=== PATIENT | male | born 1980 | race Caucasian/White ===

== ENCOUNTER 2017-02-08 21:53 | Emergency (ER) | payer SELFPAY ==
[~2017-02-08] VITALS: Ht 177.8 cm; Wt 75.0 kg
[~2017-02-08 21:53] MED LIST: ZOFR4TAB3 SL
[2017-02-08 21:54] VITALS: BP 134/86; PULSE 78; RESP 16; TEMP 98.9; O2SAT 99
[2017-02-08] MEDS ORDERED: AMOX500T PO (23:38)
[2017-02-08] MEDS ORDERED: DICL75TA PO (23:38)
--- NOTE | 2017-02-08 23:41 | PD ---
HPI Chief Complaint: Oral / Dental Pain or Problem Time Seen by Provider: 23:39 Travel History International Travel<30 days: No Contact w/Intl Traveler<30days: No Traveled to known affect area: No History of Present Illness HPI 37-year-old white male presents emergent department with complaints of dental pain 2 days. Symptoms are mild to moderate. Worse with chewing. No alleviating factors. No fever chills. PFSH Past Medical History Medical History: Denies Significant Hx Hx Anticoagulant Therapy: No Cardiovascular Problems: No Chemotherapy: No Cerebrovascular Accident: No Diabetes: No Respiratory: No Immunizations Current: Yes Tetanus Vaccination: < 5 Years Past Surgical History Surgical History: No Previous Surgery Social History Alcohol Use: Yes Tobacco Use: Yes Substance Use: No Allergies-Medications (Allergen,Severity, Reaction): Coded Allergies: No Known Allergies (Unverified , 06/22/15) Reported Meds & Prescriptions Reported Meds & Active Scripts Active Diclofenac Sodium DR (Diclofenac Sodium) 75 Mg Tabdr 75 Mg PO BID Amoxicillin 500 Mg Tab 1,000 Mg PO BID Zofran ODT (Ondansetron HCl) 4 Mg Tab 4 Mg SL Q6H PRN FOR NAUSEA/VOMITING Review of Systems Except as stated in HPI: all other systems reviewed are Neg Physical Exam Narrative GENERAL: Well-developed, well-nourished in no acute distress. Nontoxic appearing. HEAD: Normocephalic, atraumatic. EYES: Pupils equal round and reactive. Extraocular motions intact. No scleral icterus. No injection or drainage. ENT: TMs clear without erythema. The external auditory canals clear. Nose: clear . Posterior pharynx is pink and moist. No tonsillar edema or exudate. Uvula midline. Airway patent. The patient has diffuse periodontal disease. He has a large dental carry in his left lower mandible in the area of his first premolar. There is gingival erythema and edema. Patient has large lower volodymyr. The remainder floor the mouth is unremarkable. NECK: Trachea midline.Supple, nontender, moves head freely. No central bony tenderness or spasm. CARDIOVASCULAR: Regular rate and rhythm without murmurs, gallops, or rubs. RESPIRATORY: Clear to auscultation. Breath sounds equal bilaterally. No wheezes , rales, or rhonchi. GASTROINTESTINAL: Abdomen soft, non-tender, nondistended. No hepato-splenomegaly , or palpable masses. No guarding. EXTREMITIES: No clubbing, cyanosis, or edema. No joint tenderness, effusion, or edema noted. BACK: Nontender without deformity or crepitance. No flank tenderness. Data Data Last Documented VS Vital Signs Date Time Temp Pulse Resp B/P Pulse Ox O2 Delivery O2 Flow Rate FiO2 02/08/17 21:54 98.9 78 16 134/86 99 Room Air Orders Amoxicillin (Trimox) (02/08/17 23:45) Acetamin-Hydrocod 325-5 Mg ([place] 5-325 (02/08/17 23:45) MDM Medical Decision Making Medical Screen Exam Complete: Yes Emergency Medical Condition: Yes Medical Record Reviewed: Yes Differential Diagnosis MDM: Moderate Differential diagnoses: Dental abscess, dental caries, osteitis, cellulitis Narrative Course This is dental caries, dentalgia Patient given Amoxil 1 g and Lortab 5 mg by mouth Diagnosis Primary Impression: Dental caries Additional Impression: Dentalgia Patient Instructions: Narcotic given in the ED, General Instructions Med/Other Pt SpecificInfo: Prescription(s) given Scripts Diclofenac Sodium DR 75 Mg Tabdr75 Mg PO BID #20 TAB Prov:Citlaly Landrum DO 02/08/17 Amoxicillin 500 Mg Tab1,000 Mg PO BID #40 TAB Prov:Citlaly Landrum DO 02/08/17 Disposition: 01 DISCHARGE HOME Condition: Stable Santiago Lawrence Feb 08, 2017 23:41
[2017-02-08] MEDS ORDERED: AMOXICILLIN (TRIHYDRATE) 500 MG CAP PO ONE (23:45)
[2017-02-08] MEDS ORDERED: ACETAMINOPHEN/HYDROcodone 325 MG/5 MG TAB PO ONE (23:45)
== END 2017-02-09 00:10 | disposition home or self-care (01) ==
LOC: NEPD 21:53
DX: K02.9 Dental caries, unspecified (principal); Z72.0 Tobacco use; Z79.899 Other long term (current) drug therapy
CPT/HCPCS: 99284

== ENCOUNTER 2017-11-07 13:35 | Emergency (ER) | payer OTHER ==
[~2017-11-07] VITALS: Ht 182.9 cm; Wt 75.0 kg
[~2017-11-07 13:35] MED LIST changes: +AMOX500T PO; +DICL75TA PO
[2017-11-07 13:37] VITALS: BP 132/70; PULSE 77; RESP 18; TEMP 98.6; O2SAT 100
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
[2017-11-07] MEDS ORDERED: ROBA500T PO (13:55)
[2017-11-07] MEDS ORDERED: IBUP1TAB7 PO (13:55)
== END 2017-11-07 14:19 | disposition home or self-care (01) ==
LOC: NEPK 13:35
DX: S16.1XXA Strain of muscle, fascia and tendon at neck level, initial encounter (principal); V89.2XXA Person injured in unspecified motor-vehicle accident, traffic, initial encounter
CPT/HCPCS: 99283